=== PATIENT | male | born 1970 | race Caucasian/White ===

== ENCOUNTER 2023-11-08 09:52 | Outpatient (OUT) | payer OTHER, SELFPAY ==
--- NOTE | 2023-11-08 10:25 | XR_ITS ---
[address] [address] Patient Name: EVELIN MOORE MRN: [id number] date: 1970 Sex: M Assigned Patient Location: LAB Current Patient Location: LAB Accession/Order Number: [id number] Exam Date: 11/08/2023 10:22 Report Date: 11/08/2023 11:02 At the request of: NICOLASA CARVER Procedure: XR chest 2V EXAM: XR chest 2V HISTORY: Chest Tightness R07.89, Shortness Of Breath R06.02 COMPARISON: None. TECHNIQUE: PA and lateral views of the chest. FINDINGS: The cardiomediastinal silhouette is normal. No focal consolidation is identified. There is no pneumothorax. No pleural effusion is noted. The osseous structures are intact. XR/XR chest 2V IMPRESSION: No acute cardiopulmonary process. Electronically authenticated by: JOSEPH SHIN Date: 11/08/2023 11:02
[2023-11-08 10:51] LABS: D Dimer <0.19 mg/L FEU (<=0.59)
[2023-11-08 11:27] LABS: Alanine Aminotransferase 65 U/L (16-63); Aspartate Amino Transferase 29 U/L (15-37); Troponin I High Sensitivity <4.0 pg/mL (4.0-76.1)
== END 2023-11-08 09:53 | disposition home or self-care (01) ==
LOC: LAB 09:56
PROVIDERS: PCP Nurse Practitioner; Visit Provider Nurse Practitioner
DX: R07.89 Other chest pain (principal); R06.02 Shortness of breath
CPT/HCPCS: 36415; 71046; 84450; 84460; 84484; 85378